=== PATIENT | female | born 2000 | race Caucasian/White ===

== ENCOUNTER 2025-04-06 21:15 | Emergency (ER) | payer SELFPAY ==
[~2025-04-06] VITALS: Ht 152.4 cm; Wt 45.0 kg
[2025-04-06 21:23] VITALS: O2SAT 98
[2025-04-06] MEDS: FAMOTIDINE 20MG/2ML VIAL IV ONE (23:11)
[2025-04-06] MEDS: ONDANSETRON HCL 4MG/2ML INJ IV ONE (23:11)
[2025-04-06] MEDS: SODIUM CHLORIDE 0.9% 1,000 ML IV ONE (23:17)
[2025-04-06 23:38] LABS: BASOPHILS % 1.4 % (0.0-2.0); EOSINOPHILS % 0.1 % (0.0-5.0); HEMATOCRIT. 46.0 % (36.0-48.0); HEMOGLOBIN. 15.8 g/dL (12.0-16.0); LYMPHOCYTES % 23.1 % (20.0-50.0); MEAN PLATELET VOLUME 9.1 fl (7.4-10.4); MONOCYTES % 5.4 % (2.0-8.0); NEUTROPHILS % 70.0 % (40.0-76.0); PLATELET 232 x1000/uL (130-400); RED BLOOD CELL COUNT 4.59 mill/uL (4.2-5.4); RED CELL DISTRIBUTION WIDTH 13.5 % (11.6-14.6)
[2025-04-06 23:46] LABS: CREATININE 0.6 mg/dL (0.6-1.0); HCG SCREEN NEGATIVE
[2025-04-06 23:47] LABS: ETHANOL BLOOD 300 mg/dL (<10); UREA NITROGEN BLOOD 6 mg/dL (9-23)
[2025-04-06 23:48] LABS: ASPARTATE AMINOTRANSFERASE 187 IU/L (<34)
[2025-04-06 23:49] LABS: BILIRUBIN DIRECT 0.2 mg/dL (<=3.0); BILIRUBIN TOTAL 0.6 mg/dL (0.1-1.0); PROTEIN TOTAL 8.1 g/dL (6.0-8.3)
[2025-04-07 01:36] VITALS: BP 111/62; PULSE 88; RESP 16; TEMP 37.1; O2SAT 98
== END 2025-04-07 01:40 | disposition home or self-care (01) ==
LOC: ER 21:15
DX: F10.129 Alcohol abuse with intoxication, unspecified (principal); F12.90 Cannabis use, unspecified, uncomplicated; R51.9 Headache, unspecified; Y90.8 Blood alcohol level of 240 mg/100 ml or more
CPT/HCPCS: 80076; 80048; 80320; 84703; 83690; 85025; 36415; 70450; 96361; 96374; 96375; 99285; J1308; J2405; J7030; Z7610 ×3; A4606; G0480